=== PATIENT | male | born 1995 | race Hispanic/Latino ===

== ENCOUNTER 2017-09-21 07:15 | Emergency (ER) | payer BC ==
[~2017-09-21 07:15] MED LIST: AUD IH; BUDE10.2 IH; LEVO500T2 PO; METO-408 PO; MIRT30TA6 PO; MONT10TA24 PO
[2017-09-21 08:27] LABS: AMPHET/METH SCREEN,URINE NEGATIVE (NEGATIVE); BARBITURATE SCREEN, URINE NEGATIVE (NEGATIVE); BENZODIAZEPINES SCREEN,URINE POSITIVE (NEGATIVE); CANNABINOID SCREEN,URINE NEGATIVE (NEGATIVE); COCAINE SCREEN,URINE NEGATIVE (NEGATIVE); OPIATE SCREEN,URINE NEGATIVE (NEGATIVE); PHENCYCLIDINE SCREEN,URINE NEGATIVE (NEGATIVE)
== END 2017-09-21 08:21 | disposition home or self-care (01) ==
LOC: EDH 07:15
DX: R07.89 Other chest pain (principal); J45.909 Unspecified asthma, uncomplicated; I10 Essential (primary) hypertension; Z87.891 Personal history of nicotine dependence
CPT/HCPCS: 71045; 80305; 93005

== ENCOUNTER 2018-05-16 06:38 | Day surgery (SDC) | payer BC ==
[2018-05-13 15:54] VITALS: BP 143/84
[2018-05-13 15:55] LABS: EOSINOPHILS % (AUTO) 2.1 % (0.0-8.0); HEMATOCRIT 46.4 % (42-54); LYMPHOCYTES % (AUTO) 27.9 % (21.0-51.0); MEAN CORPUSCULAR HEMOGLOBIN 30.6 pg (27.0-33.0); MEAN CORPUSCULAR HGB CONC 34.4 g/dL (32.0-36.0); MEAN CORPUSCULAR VOLUME 88.9 fL (79-99); MONOCYTES % (AUTO) 7.6 % (3.0-13.0); NEUTROPHILS % (AUTO) 61.4 % (40.0-77.0); PLATELET COUNT (AUTO) 379 K/uL (130-400); RED BLOOD CELL COUNT(AUTO) 5.22 MIL/uL (4.50-6.20); WHITE BLOOD COUNT (AUTO) 10.1 K/uL (4.8-10.8)
[2018-05-13 15:56] LABS: APPEARANCE,URINE Clear (CLEAR); BILIRUBIN,URINE Negative (NEGATIVE); COLOR,URINE Yellow (YELLOW); GLUCOSE, URINE (UA) Negative (NEGATIVE); KETONES,URINE Negative (NEGATIVE); LEUKOCYTE ESTERASE ,URINE Negative (NEGATIVE); NITRATE,URINE Negative (NEGATIVE); OCCULT BLOOD,URINE Negative (NEGATIVE); PH,URINE 8.5 (5.0-8.0); PROTEIN,URINE Negative (NEGATIVE); UROBILINOGEN,URINE 0.2 mg/dL (0.2-1.0)
[2018-05-13 16:04] LABS: CREATININE 1.1 mg/dL (0.5-1.5); POTASSIUM 3.7 mmol/L (3.5-5.1)
[2018-05-13 16:07] LABS: INR 0.95 (0.85-1.15)
[2018-05-13 17:19] LABS: PARTIAL THROMBOPLASTIN TIME 30.8 SEC (26.3-35.5)
[~2018-05-16] VITALS: Ht 170.2 cm; Wt 91.9 kg
[2018-05-16] VITALS (8 sets, daily range): BP systolic 117–143; BP diastolic 70–96
[~2018-05-16 06:38] MED LIST changes: +ALBU8.5H8 IH; +ALPR2TAB2 PO; -AUD IH; -LEVO500T2 PO; -METO-408 PO; +MIRT30TA2 PO; -MIRT30TA6 PO; -MONT10TA24 PO; +SODIUM CHLORIDE 0.9% 500ML 500 ML IV SCH; +SYMB8060 IH
[2018-05-16] MEDS ORDERED: SODIUM CHLORIDE 0.9% 1000ML 1,000 ML IV ONE (06:47)
[2018-05-16] MEDS ORDERED: LIDOCAINE HCL 2% 20ML ONE (07:39)
[2018-05-16] MEDS ORDERED: BUSP15TA3 PO (07:53)
[2018-05-16] MEDS ORDERED: NITROGLYCERIN 5 MG/ML 10 ML VIAL IV ONE (08:02)
[2018-05-16] MEDS ORDERED: SODIUM CHLORIDE 0.9% 10 ML VIAL IVP SCH (09:15)
[2018-05-16] MEDS ORDERED: ACETAMINOPHEN EXTRA STRENGTH 500 MG TABLET ONE (10:23)
== END 2018-05-16 11:25 | disposition home or self-care (01) ==
LOC: DAH 06:38
PROVIDERS: ATTEND Internal Medicine Cardiovascular Disease
DX: I47.1 Supraventricular tachycardia (principal); J45.909 Unspecified asthma, uncomplicated; I27.20 Pulmonary hypertension, unspecified; Z98.890 Other specified postprocedural states; Z79.899 Other long term (current) drug therapy; F41.9 Anxiety disorder, unspecified; Z87.891 Personal history of nicotine dependence; I42.8 Other cardiomyopathies
CPT/HCPCS: 36415; 71045; 80048; 81003; 85025; 85610; 85730; 93005; 93451; A4606; C1894; J1644; J3490 ×2; J7030

== ENCOUNTER 2020-05-08 08:37 | Emergency (ER) | payer BC ==
[~2020-05-08 08:37] MED LIST changes: -BUDE10.2 IH; +BUSP15TA3 PO; -SODIUM CHLORIDE 0.9% 500ML 500 ML IV SCH
[2020-05-08] MEDS ORDERED: ACETAMINOPHEN-CODEINE 300/30MG TAB ONE (09:03)
[2020-05-08 09:06] LABS: APPEARANCE,URINE Clear (CLEAR); BILIRUBIN,URINE Negative (NEGATIVE); COLOR,URINE Yellow (YELLOW); GLUCOSE, URINE (UA) Negative (NEGATIVE); KETONES,URINE Negative (NEGATIVE); LEUKOCYTE ESTERASE ,URINE Negative (NEGATIVE); NITRATE,URINE Negative (NEGATIVE); OCCULT BLOOD,URINE Negative (NEGATIVE); PROTEIN,URINE Negative (NEGATIVE); UROBILINOGEN,URINE 0.2 mg/dL (0.2-1.0)
[2020-05-08 09:07] LABS: BASOPHILS % (AUTO) 0.9 % (0.0-5.0); EOSINOPHILS % (AUTO) 1.9 % (0.0-8.0); HEMATOCRIT 49.1 % (42-54); LYMPHOCYTES % (AUTO) 32.5 % (21.0-51.0); MEAN CORPUSCULAR HEMOGLOBIN 30.4 pg (27.0-33.0); MEAN CORPUSCULAR HGB CONC 34.4 g/dL (32.0-36.0); MEAN CORPUSCULAR VOLUME 88.3 fL (79-99); NEUTROPHILS % (AUTO) 57.4 % (40.0-77.0); PLATELET COUNT (AUTO) 375 K/uL (130-400); RED BLOOD CELL COUNT(AUTO) 5.56 MIL/uL (4.50-6.20); RED CELL DISTRIBUTION WIDTH 12.8 % (11.0-15.5)
[2020-05-08 09:22] LABS: CREATININE 0.9 mg/dL (0.5-1.5); POTASSIUM 4.4 mmol/L (3.5-5.1)
[2020-05-08 09:24] LABS: ALBUMIN 3.8 g/dL (3.5-5.0); BILIRUBIN,TOTAL 0.8 mg/dL (0.2-1.0); TOTAL PROTEIN, SERUM 7.1 g/dL (6.0-8.3)
== END 2020-05-08 12:07 | disposition home or self-care (01) ==
LOC: EDH 08:37
DX: N50.811 Right testicular pain (principal); R10.31 Right lower quadrant pain
CPT/HCPCS: 36415; 74176; 76870; 80053; 81003; 83690; 85025

== ENCOUNTER 2021-09-27 14:37 | Emergency (ER) | payer BC ==
[~2021-09-27] VITALS: Ht 172.7 cm; Wt 88.5 kg
[2021-09-27 14:48] VITALS: BP 132/92
== END 2021-09-27 15:43 | disposition home or self-care (01) ==
LOC: EDH 14:37
DX: T43.621A Poisoning by amphetamines, accidental (unintentional), initial encounter (principal); J45.909 Unspecified asthma, uncomplicated; F41.9 Anxiety disorder, unspecified; Z79.51 Long term (current) use of inhaled steroids; F90.9 Attention-deficit hyperactivity disorder, unspecified type; Y92.89 Other specified places as the place of occurrence of the external cause
CPT/HCPCS: 93005

== ENCOUNTER 2023-08-15 14:59 | Emergency (ER) | payer BC, OTHER ==
[~2023-08-15] VITALS: Ht 172.7 cm; Wt 90.7 kg
[~2023-08-15 14:59] MED LIST changes: +MIRT-144 PO; -MIRT30TA2 PO
[2023-08-15 16:38] LABS: BASOPHILS # (AUTO) 0.06 K/uL (0.00-0.20); BASOPHILS % (AUTO) 0.5 % (0.0-5.0); EOSINOPHILS # (AUTO) 0.04 K/uL (0.00-0.70); EOSINOPHILS % (AUTO) 0.3 % (0.0-8.0); HEMATOCRIT 49.1 % (42-54); IMMATURE GRANULOCYTE ABSOLUTE 0.06 K/uL (0-1); LYMPHOCYTES # (AUTO) 2.4 K/uL (1.0-4.8); LYMPHOCYTES % (AUTO) 19.5 % (21.0-51.0); MEAN CORPUSCULAR HEMOGLOBIN 29.7 pg (27.0-33.0); MEAN CORPUSCULAR HGB CONC 34.6 g/dL (32.0-36.0); MEAN CORPUSCULAR VOLUME 85.8 fL (79-99); MONOCYTES # (AUTO) 1.1 K/uL (0.1-1.0); MONOCYTES % (AUTO) 8.6 % (3.0-13.0); NEUTROPHILS # (AUTO) 8.6 K/uL (1.8-7.7); NEUTROPHILS % (AUTO) 70.6 % (40.0-77.0); PLATELET COUNT (AUTO) 337 K/uL (130-400); RED BLOOD CELL COUNT(AUTO) 5.72 MIL/uL (4.50-6.20); RED CELL DISTRIBUTION WIDTH 13.2 % (11.0-15.5); WHITE BLOOD COUNT (AUTO) 12.2 K/uL (4.8-10.8)
[2023-08-15 16:48] LABS: CARBON DIOXIDE 26 mmol/L (21-32); CHLORIDE 100 mmol/L (101-111); CREATININE 1.2 mg/dL (0.5-1.5); GLOMERULAR FILTR. RATE CALC 83 mL/min (>90); GLUCOSE,RANDOM 119 mg/dL (70-105); POTASSIUM 3.7 mmol/L (3.5-5.1); SODIUM SERUM 138 mmol/L (136-145); UREA NITROGEN, BLOOD 23 mg/dL (7-18)
[2023-08-15 16:53] LABS: ALANINE AMINOTRANSFERASE 53 U/L (12-78); ALBUMIN 4.2 g/dL (3.5-5.0); ALCOHOL, BLOOD < 3 mg/dL (0-10); ASPARTATE AMINOTRANSFERASE 36 U/L (10-37); BILIRUBIN,TOTAL 0.5 mg/dL (0.2-1.0); CREATINE KINASE, TOTAL 202 U/L (21-232); TOTAL PROTEIN, SERUM 8.4 g/dL (6.0-8.3)
[2023-08-15 17:01] LABS: ACETAMINOPHEN < 1 mcg/mL (10-29); SALICYLATE < 2.8 mg/dL (2.8-20.0)
[2023-08-15 17:22] LABS: APPEARANCE,URINE CLEAR (CLEAR); BILIRUBIN,URINE NEGATIVE (NEGATIVE); COLOR,URINE LIGHT-YELLOW (YELLOW); GLUCOSE, URINE (UA) NEGATIVE (NEGATIVE); KETONES,URINE 20 mg/dL (NEGATIVE); LEUKOCYTE ESTERASE ,URINE NEGATIVE Leu/uL (NEGATIVE); NITRATE,URINE NEGATIVE (NEGATIVE); OCCULT BLOOD,URINE NEGATIVE (NEGATIVE); PH,URINE 5.5 (5.0-8.0); PROTEIN,URINE 10 mg/dL (NEGATIVE); UROBILINOGEN,URINE 0.2 mg/dL (0.2-1.0)
[2023-08-15 17:24] LABS: ADD UA MICROSCOPIC YES; RBC,URINE 0-1 /HPF (0-1); UNCLASSIFIED CRYSTAL 1 /HPF (None Seen); WBC,URINE 0-1 /HPF (0-1)
[2023-08-15 17:29] LABS: AMPHET/METH SCREEN,URINE NEGATIVE (NEGATIVE); BARBITURATE SCREEN, URINE NEGATIVE (NEGATIVE); BENZODIAZEPINES SCREEN,URINE NEGATIVE (NEGATIVE); CANNABINOID SCREEN,URINE POSITIVE (NEGATIVE); COCAINE SCREEN,URINE NEGATIVE (NEGATIVE); OPIATE SCREEN,URINE NEGATIVE (NEGATIVE); PHENCYCLIDINE SCREEN,URINE NEGATIVE (NEGATIVE)
[2023-08-15] MEDS ORDERED: HYDR100C2 PO (18:06)
[2023-08-15 18:08] VITALS: BP 133/77; PULSE 98; RESP 18; O2SAT 97
== END 2023-08-15 18:31 | disposition home or self-care (01) ==
LOC: EDH 14:59
DX: F10.10 Alcohol abuse, uncomplicated (principal); F12.90 Cannabis use, unspecified, uncomplicated; F41.9 Anxiety disorder, unspecified; F32.A Depression, unspecified; J45.909 Unspecified asthma, uncomplicated; Z79.899 Other long term (current) drug therapy; Z98.890 Other specified postprocedural states
CPT/HCPCS: 99283; 82550; 80053; 80305; 85025; 36415; 81001; G0481

== ENCOUNTER 2023-12-18 18:23 | Emergency (ER) | payer BC ==
[~2023-12-18] VITALS: Ht 175.3 cm; Wt 90.7 kg
[~2023-12-18 18:23] MED LIST changes: +HYDR100C2 PO
[2023-12-18] MEDS: ALPRAZOLAM 0.25 MG TABLET PO ONE (20:39)
[2023-12-18 20:43] VITALS: BP 148/81; PULSE 81; RESP 16; O2SAT 99
== END 2023-12-18 20:54 | disposition home or self-care (01) ==
LOC: EDH 18:23
DX: R07.89 Other chest pain (principal); F41.9 Anxiety disorder, unspecified; F32.A Depression, unspecified; J45.909 Unspecified asthma, uncomplicated; Z79.899 Other long term (current) drug therapy; Z98.890 Other specified postprocedural states
CPT/HCPCS: 71045; 84484; 93005